=== PATIENT | female | born 1960 | race Caucasian/White ===

== ENCOUNTER 2017-07-03 11:37 | Emergency (ER) | payer OTHER ==
[2017-07-03] MEDS ORDERED: Acetaminophen TAB* 325 MG PO ONE (13:05)
[2017-07-03 13:38] LABS: ABS Basophils 0 10^3/ul (0-0.2); ABS Eosinophils 0.1 10^3/ul (0-0.6); ABS Lymphocytes 1.8 10^3/ul (1.0-4.8); ABS Monocytes 0.4 10^3/ul (0-0.8); ABS Neutrophils 1.3 10^3/ul (1.5-7.7); ABS Nucleated RBC 0 10^3/ul; Eosinophil % 3.8 % (0-6); Hematocrit 38 % (35-47); Lymphocyte % 48.6 % (25-47); Mean Corpuscular HGB Conc 34 g/dl (31-36); Mean Corpuscular Hemoglobin 34 pg (27-31); Mean Corpuscular Volume 99 fL (80-97); Mean Platelet Volume 6.3 um3 (7.4-10.4); Nucleated Red Blood Cells % 0.1; Platelet Count 188 10^3/ul (150-450); Red Blood Count 3.86 10^6/ul (4.0-5.4); Red Cell Distribution Width 13 % (10.5-15); White Blood Count 3.8 10^3/ul (3.5-10.8)
[2017-07-03 13:57] LABS: EGFR Non-African American 86.2 (>60)
[2017-07-03 15:13] VITALS: BP 112/74
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
== END 2017-07-03 15:11 | disposition left against medical advice (07) ==
LOC: ED 11:37
DX: R55 Syncope and collapse (principal); G44.209 Tension-type headache, unspecified, not intractable; R41.3 Other amnesia; R26.81 Unsteadiness on feet; R11.0 Nausea
CPT/HCPCS: 36415; 80053; 84484; 85025; 93005; 99283; A9270-GY

== ENCOUNTER 2018-04-26 12:13 | Emergency (ER) | payer OTHER ==
[2018-04-26 12:29] VITALS: BP 158/84
--- NOTE | 2018-04-26 12:44 | UC ---
Dental HPI - HPI Summary HPI Summary: 57-year-old woman comes in with a chief complaint of left facial swelling. She had dental work done on the left upper molar 2 days ago by her dentist. She is on amoxicillin. Been taking ibuprofen 800 mg by mouth 3 times a day which does help with the pain. No fevers or chills feels well otherwise. Is concerned because her cheek has swollen more over the last 2 days. She [id number] over dentist but he is unavailable today but does have a follow-up with her dentist scheduled for April 30, 2018. No difficulty with swallowing. - History of Current Complaint Chief Complaint: UCDentalProblem Stated Complaint: swelling Time Seen by Provider: 04/26/18 12:33 Pain Intensity: 5 - Allergies/Home Medications Allergies/Adverse Reactions: Allergies Allergy/AdvReac Type Severity Reaction Status Date / Time No Known Allergies Allergy Verified 04/26/18 12:29 Home Medications: Home Medications Amoxicillin PO (*) [Amoxicillin 500 MG CAP*] 500 mg PO TID 04/26/18 [History Confirmed 04/26/18] Ibuprofen TAB* [Motrin TAB* 800 MG] 800 mg PO Q8HR PRN 04/26/18 [History Confirmed 04/26/18] PMH/Surg Hx/FS Hx/Imm Hx Previously Healthy: Yes Psychological History: Anxiety - Surgical History Surgical History: Yes Surgery Procedure, Year, and Place: partial mast - Family History Known Family History: Positive: Non-Contributory - Social History Alcohol Use: None Alcohol Amount: unk Substance Use Type: None Substance Use Comment - Amount & Last Used: unk Smoking Status (MU): Unknown if Ever Smoked Review of Systems All Other Systems Reviewed And Are Negative: Yes Constitutional: Positive: Negative Skin: Positive: Negative Eyes: Positive: Negative ENT: Positive: Other - SEE HPI Respiratory: Positive: Negative Cardiovascular: Positive: Negative Gastrointestinal: Positive: Negative Motor: Positive: Negative Neurovascular: Positive: Negative Musculoskeletal: Positive: Negative Neurological: Positive: Negative Psychological: Positive: Anxious Is Patient Immunocompromised?: No Physical Exam Triage Information Reviewed: Yes Appearance: Well-Appearing, No Pain Distress, Well-Nourished Vital Signs: Initial Vital Signs Temp 98.6 F 04/26/18 12:26 Pulse 73 04/26/18 12:26 Resp 17 04/26/18 12:26 BP 158/84 04/26/18 12:26 Pulse Ox 100 04/26/18 12:26 Vital Signs Reviewed: Yes Eye Exam: Normal Eyes: Positive: Conjunctiva Clear ENT: Negative: Pharyngeal erythema, Nasal drainage Dental: Positive: Other: - LEFT CHEEK SWELLING. OROPHARYNX OPEN Neck exam: Normal Neck: Positive: Supple Respiratory: Positive: No respiratory distress Musculoskeletal Exam: Normal Musculoskeletal: Positive: Strength Intact, ROM Intact Neurological Exam: Normal Neurological: Positive: Alert, Muscle Tone Normal Psychological Exam: Normal Psychological: Positive: Age Appropriate Behavior Skin Exam: Normal Dental Complaint Course/Dx - Course Course Of Treatment: Patient is concerned about the swelling is potentially do to infection. She is on amoxicillin 500 mg by mouth 3 times a day. She feels well otherwise. The plan is to add clindamycin 300 mg by mouth 4 times a day and she will be following up with her dentist as scheduled on April 30, 2018. Reevaluation sooner if worse. - Differential Dx/Diagnosis Provider Diagnosis: Tooth ache, Left facial swelling Discharge - Sign-Out/Discharge Documenting (check all that apply): Patient Departure All imaging exams completed and their final reports reviewed: No Studies - Discharge Plan Condition: Stable Disposition: HOME Prescriptions: Clindamycin Cap(NF) [Clindamycin Cap 300 mg Cap(NF)] 300 mg PO Q6H #40 cap Ibuprofen TAB* [Motrin TAB* 800 MG] 800 mg PO TID PRN #15 tab MDD 3 PRN Reason: Pain Patient Education Materials: Toothache (ED) Referrals: Tunde Freire MD [Primary Care Provider] - Additional Instructions: FOLLOW UP WITH YOUR DENTIST. GET RECHECKED FOR ANY WORSENING OF YOUR CONDITION OR QUESTIONS OR CONCERNS. - Billing Disposition and Condition Condition: STABLE Disposition: Home
== END 2018-04-26 12:43 | disposition home or self-care (01) ==
LOC: UCEAST 12:13
DX: K08.89 Other specified disorders of teeth and supporting structures (principal); R22.0 Localized swelling, mass and lump, head
CPT/HCPCS: 99212; G0463

== ENCOUNTER 2018-05-04 13:04 | Emergency (ER) | payer OTHER ==
[2018-05-04 14:01] VITALS: BP 135/91
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
== END 2018-05-04 15:24 | disposition home or self-care (01) ==
LOC: UCEAST 13:04
DX: T18.9XXA Foreign body of alimentary tract, part unspecified, initial encounter (principal); X58.XXXA Exposure to other specified factors, initial encounter; Y92.531 Health care provider office as the place of occurrence of the external cause; Z96.643 Presence of artificial hip joint, bilateral
CPT/HCPCS: 74018; 99211; G0463

== ENCOUNTER 2018-06-25 09:32 | Emergency (ER) | payer OTHER ==
--- NOTE | 2018-06-25 10:03 | ED ---
Influenza-Like Illness - HPI Summary HPI Summary: This pt is a 57 y/o female presenting to [facility] c/o cough, sore throat, and fever. Pt reports pt saw her PCP 3 days ago for tooth "issues" and he heard wheezes. She notes her symptoms were worse yesterday and today woke up with chills and a fever maximum temperature of 103F. Pt describes a productive cough with sputum and also a sore throat. She took 800 mg Ibuprofen at 0900 today. Pt has had a dental abscess since February 2018. She notes she got root canal but never got a crown placed. - History of Current Complaint Chief Complaint: EDFluSymptoms Time Seen by Provider: 06/25/18 09:39 Hx Obtained From: Patient Onset/Duration: Gradual Onset, Lasting Days, Still Present Severity: Moderate Associated Signs & Symptoms: Fever, Cough, Sore Throat - Allergy/Home Medications Allergies/Adverse Reactions: Allergies Allergy/AdvReac Type Severity Reaction Status Date / Time No Known Allergies Allergy Verified 06/25/18 09:57 Home Medications: Home Medications Magnesium Oxide [Magnesium] 500 mg PO BEDTIME 06/25/18 [History Confirmed ] PMH/Surg Hx/FS Hx/Imm Hx Sensory History: Denies: Hx Legally Blind Opthamlomology History: Denies: Hx Legally Blind - Cancer History Cancer Type, Location and Year: triple negative breast CA. MDS Hx Chemotherapy: No Hx Radiation Therapy: Yes - Surgical History Surgery Procedure, Year, and Place: partial mast bilat hip replacement 2009, rotator cuff right 2013 Infectious Disease History: No Infectious Disease History: Denies: Traveled Outside the [place] in Last 30 Days - Family History Known Family History: Positive: Cardiac Disease - father, Diabetes - mother Family History: Mother with breast CA. - Social History Alcohol Use: Occasionally Alcohol Amount: unk Substance Use Type: Reports: None Substance Use Comment - Amount & Last Used: unk Smoking Status (MU): Never Smoked Tobacco Review of Systems Positive: Fever, Chills Positive: Sore Throat Respiratory: Other - POS: wheezing Positive: Cough All Other Systems Reviewed And Are Negative: Yes Physical Exam Vital Signs On Initial Exam: Initial Vitals Temp Pulse Resp BP Pulse Ox 102.2 F 101 20 110/83 97 06/25/18 09:36 06/25/18 09:36 06/25/18 09:36 06/25/18 09:36 06/25/18 09:36 Diagnostics - Vital Signs Vital Signs Temp Pulse Resp BP Pulse Ox 06/25/18 09:36 102.2 F 101 20 110/83 97 - Laboratory Result Diagrams: 06/25/18 10:23 06/25/18 10:24 Lab Statement: Any lab studies that have been ordered have been reviewed, and results considered in the medical decision making process. - Radiology Chest XR Radiology Interpretation Completed By: Radiologist Summary of Radiographic Findings: IMPRESSION: No active cardiopulmonary disease. Dr. Brand has reviewed this report. - EKG 09:58 Cardiac Rate: NL - at 91 bpm EKG Rhythm: Sinus Rhythm EKG Comparison: No Significant Change - compared to prior 07/03/17. Summary of EKG Findings: No ST elevation. Re-Evaluation - Re-Evaluation First Eval Re-Evaluation Time: 11:25 Comment: I reviewed the lab and CXR results with the pt. She will be discharged home with follow up from PCP. Flu Symptom Course/Dx - Course Assessment/Plan: This patient is a 57-year-old female who presents to the emergency department with a chief complaint of coughing, fevers, runny nose, sore throat. Blood work without any significant abnormality except for glucose of 135 and CRP of 20. Influenza A and B is negative, rapid strep is negative. Chest x-ray impression: No active or acute pulmonary disease. In the ED course the patient has remained stable. She has no other complaints. I believe that the patient has an upper respiratory tract infection which is likely viral. Therefore, I would not give the patient antibiotics and she needs to follow with her primary care physician. If she develops any fever or chills she will take ibuprofen and Tylenol. I discussed all the findings and test results with the patient. Patient was instructed to return to the emergency room immediately if any of the symptoms return or worsens. Plan of care was discussed with the patient and understands and agrees. All questions were answered at patient satisfaction. There were no further complaints or concerns. Lung exam before discharge: CTA B/L. Good air exchange. No wheezing or crackles heard. CVS: S1 and S2 present. No murmurs appreciated. Patient is alert and oriented x 3. Patient is hemodynamically stable. Patient will be discharged home with follow up from her PCP in the next 2-3 days. - Diagnoses Differential Diagnosis/HQI/PQRI: Positive: Bronchitis, Influenza, Pneumonia, Upper Respiratory Infection Provider Diagnoses: URI (upper respiratory infection) Discharge - Sign-Out/Discharge Documenting (check all that apply): Patient Departure - Discharge home Patient Received Moderate/Deep Sedation with Procedure: No - Discharge Plan Condition: Stable Disposition: HOME Patient Education Materials: Upper Respiratory Infection (ED) Referrals: Tunde Freire MD [Primary Care Provider] - Additional Instructions: FOLLOW UP WITH YOUR PRIMARY CARE PROVIDER IN 2-3 DAYS. RETURN TO THE ED FOR ANY NEW OR WORSENING SYMPTOMS. - Billing Disposition and Condition Condition: STABLE Disposition: Home - Attestation Statements Document Initiated by Aurelioibangelic: Yes Documenting Scribe: Lily Sanchez Provider For Whom Abbe is Documenting (Include Credential): Monroe Brand MD Scribe Attestation: Lily Awad scribed for Monroe Brand MD on 06/25/18 at 1843. Scribe Documentation Reviewed: Yes Provider Attestation: The documentation as recorded by the Lily kimball accurately reflects the service I personally performed and the decisions made by , Monroe Brand MD Status of Scribe Document: Viewed
--- OUTSIDE RECORDS SUMMARY | 2018-06-25 10:10 | XMS REPORT | Continuity of Care Document ---
:1960 External Reference #:[id number] Author Name Vandana Eloise Care Team Providers Name Role Phone Tunde Freire MD Care Team Information Egg Separator Unavailable Tunde Freire MD Primary Care Physician Unavailable Payers Date Identification Numbers Payment Provider Subscriber Policy Number: [id number] Sung Bolaños PayID: [id number] [address] [place] [phone] Advance Directives Description No Information Available Problems Date Description Provider Status Onset: 04/16/2015 Disturbance in sleep behavior Katharina Acevedo MD Active Note: since of her daughter Onset: 04/16/2015 Obesity Katharina Acevedo MD Active Onset: 05/29/2015 Obstructive sleep apnea Hiral Zendejas DNP, RN, Active syndrome INTERVENTIONAL TECHNOLOGIST-BC Note: has CPAP Onset: 05/04/2010 Neoplasm of breast Aniket Estrella MD Active Note: triple negative - followed by Dr Cuevas Family History Date Family Member(s) Observation Comments Father , diagnosed w/heart disease Mother Breast cancer; DM, from food poisoning Siblings 2 Sister, obese ; brother, healthy Social History Type Date Description Comments Sex Unknown Marital Status 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 Tobacco Use Start: Unknown Quit at age 18 ETOH Use Occasionally consumes alcohol Tobacco Use Start: Unknown End: Patient is a former Smoked from age Unknown smoker 14-19 years old Recreational Drug Use Denies Drug Use Smoking Status Reviewed: 06/04/18 Patient is a former Smoked from age smoker 14-19 years old Exercise Type/Frequency Exercises sporadically Allergies, Adverse Reactions, Alerts Date Description Reaction Status Severity Comments 04/16/2015 NKDA Active 04/16/2015 Seasonal Allergies Active Medications Medication Date Status Form Strength Qnty SIG Indications Ordering Provider Suprep Bowel 05/07/ Active Solution 17.5-3.13 354un as directed Aniket Milton Prep Kit 2018 -1.6GM/ its Sameer, 7ML Phentermine HCL 06/16/ Active Capsules 15mg as directed- Unknown 2016 seasonally, winter/ fall Meloxicam 06/16/ Active Tablets 15mg 1 by mouth Unknown 2016 every day as needed Claritin-D 12 06/16/ Active Tablets 5-120mg as directed Unknown Hour 2016 ER 12HR Ventolin HFA 06/16/ Active Aerosol 108(90Bas 2 puffs by Unknown 2016 e) mouth four mcg/Act times a day as needed Xanax 04/15/ Active Tablets 0.5mg by mouth Unknown 2015 three times a day as needed Ambien 04/15/ Active Tablets 10mg 1 by mouth Unknown 2015 every night at bedtime Vitamin D 04/15/ Active Capsules 2000Unit 1 by mouth Unknown 2015 every day Multivitamins 04/15/ Active Capsules 1 by mouth Unknown 2015 every day Vitamin B12 04/15/ Active Tablets 100mcg 1 by mouth Unknown 2015 every day Vitamin C 04/15/ Active Capsules 500mg 1 by mouth Unknown 2015 every day Fish Oil 04/15/ Active Capsules 1000mg 1 by mouth Unknown 2015 DR every day Clindamycin HCL / Active Capsules 300mg 1 by mouth Unknown 0000 three times a day Miralax / Active Packet 3350NF take 1 packet Unknown 0000 daily as needed for constipation Iron 04/15/ Hx Tablets 325(65Fe) 1 by mouth Unknown 2016 - mg every day 2017 Immunizations Description No Information Available Vital Signs Date Vital Result Comment 06/04/2018 2:11pm Height 65 inches 5'5" Weight 205.12 lb Heart Rate 68 /min BP Systolic Sitting 128 mmHg large adult cuff left arm BP Diastolic Sitting 73 mmHg large adult cuff left arm O2 % BldC Oximetry 98 % at rest on room air BMI (Body Mass Index) 34.1 kg/m2 05/07/2018 1:47pm Height 65 inches 5'5" Weight 200.00 lb Heart Rate 81 /min BP Systolic 143 mmHg BP Diastolic 87 mmHg Respiratory Rate 20 /min Body Temperature 96.0 F O2 % BldC Oximetry 100 % BMI (Body Mass Index) 33.3 kg/m2 05/04/2018 4:19pm Height 65 inches 5'5" Weight 200.50 lb Heart Rate 86 /min BP Systolic 158 mmHg BP Diastolic 90 mmHg Respiratory Rate 18 /min Body Temperature 97.8 F O2 % BldC Oximetry 97 % BMI (Body Mass Index) 33.4 kg/m2 09/22/2017 11:00am Height 65 inches 5'5" Weight 214.50 lb Heart Rate 72 /min BP Systolic Sitting 132 mmHg Rue large cuff BP Diastolic Sitting 88 mmHg Rue large cuff Respiratory Rate 16 /min O2 % BldC Oximetry 97 % On Ra BMI (Body Mass Index) 35.7 kg/m2 06/17/2016 10:25am Height 65 inches 5'5" Weight 210.00 lb Heart Rate 74 /min BP Systolic 132 mmHg BP Diastolic 70 mmHg Respiratory Rate 14 /min O2 % BldC Oximetry 98 % BMI (Body Mass Index) 34.9 kg/m2 12/16/2015 10:37am Height 65 inches 5'5" Weight 210.00 lb Heart Rate 65 /min BP Systolic Sitting 140 mmHg BP Diastolic Sitting 78 mmHg Respiratory Rate 16 /min O2 % BldC Oximetry 97 % BMI (Body Mass Index) 34.9 kg/m2 09/15/2015 10:34am Height 65 inches 5'5" Heart Rate 97 /min BP Systolic 142 mmHg BP Diastolic 80 mmHg Respiratory Rate 14 /min O2 % BldC Oximetry 98 % 07/10/2015 10:29am Height 65 inches 5'5" Weight 211.25 lb Heart Rate 82 /min BP Systolic 122 mmHg BP Diastolic 80 mmHg Respiratory Rate 14 /min BMI (Body Mass Index) 35.1 kg/m2 05/29/2015 10:44am Height 65 inches 5'5" Weight 204.25 lb Heart Rate 81 /min BP Systolic Sitting 134 mmHg BP Diastolic Sitting 74 mmHg Respiratory Rate 16 /min O2 % BldC Oximetry 98 % BMI (Body Mass Index) 34.0 kg/m2 04/16/2015 10:23am Height 65 inches 5'5" Weight 207.38 lb Heart Rate 80 /min BP Systolic Sitting 132 mmHg BP Diastolic Sitting 76 mmHg Respiratory Rate 16 /min O2 % BldC Oximetry 97 % BMI (Body Mass Index) 34.5 kg/m2 Neck Circumference in inches 14.5 Results Description No Information Available Procedures Date Code Description Status 05/08/2018 66503 Colonoscopy Flexible Remove Foreign Body Completed 05/08/2018 40714127 Colonoscopy Completed 05/04/2015 23895 Polysomnography Sleep Staging 4+ Parameters W/Cpap Completed Encounters Type Date Location Provider Dx Diagnosis Office Visit 05/07/2018 [facility] Aniket Milton T18.4xxD Foreign body in 1:45p MD Sameer colon, subsequent encounter E66.09 Other obesity due to excess calories Office Visit 05/04/2018 [facility] Aniket Milton T18.8xxA Foreign body in 4:00p MD Sameer other parts of alimentary tract, init encntr F41.1 Generalized anxiety disorder Office Visit 09/22/2017 [facility] G47.33 Obstructive sleep 10:45a [facility] Z[facility] RN, apnea (adult) [facility] INTERVENTIONAL TECHNOLOGIST-BC (pediatric) Z68.35 Body mass index (BMI) 35.0-35.9, adult Office Visit 06/17/2016 [facility] G47.33 Obstructive sleep 10:15a [facility] Z[facility] RN, apnea (adult) [facility] INTERVENTIONAL TECHNOLOGIST-BC (pediatric) Office Visit 12/16/2015 [facility] G47.33 Obstructive sleep 10:30a [facility] Z[facility] RN, apnea (adult) [facility] INTERVENTIONAL TECHNOLOGIST-BC (pediatric) E66.09 Other obesity due to excess calories Office Visit 09/15/2015 [facility] G47.33 Obstructive sleep 10:15a [facility] Z[facility] RN, apnea (adult) [facility] INTERVENTIONAL TECHNOLOGIST-BC (pediatric) E66.09 Other obesity due to excess calories Office Visit 07/10/2015 [facility] G47.33 Obstructive sleep 10:15a [facility] Z[facility] RN, apnea (adult) [facility] INTERVENTIONAL TECHNOLOGIST-BC (pediatric) Office Visit 05/29/2015 [facility] G47.33 Obstructive sleep 10:30a [facility] Z[facility] RN, apnea (adult) [facility] INTERVENTIONAL TECHNOLOGIST-BC (pediatric) Office Visit 04/16/2015 [facility] Katharina Acevedo G47.9 Sleep disorder, 10:15a [facility] E66.09 Other obesity due to excess calories Plan of Treatment Future Appointment(s):09/24/2018 10:30 am - Hiral Zendejas, GINGER, RN, INTERVENTIONAL TECHNOLOGIST-BC at [facility]06/04/2018 - Aniket Estrella, MDR10.84 Generalized abdominal painT18.4xxD Foreign body in colon, subsequent [id number] Other obesity due to excess calories
[2018-06-25 10:35] LABS: ABS Basophils 0 10^3/ul (0-0.2); ABS Eosinophils 0 10^3/ul (0-0.6); ABS Lymphocytes 0.4 10^3/ul (1.0-4.8); ABS Monocytes 0.4 10^3/ul (0-0.8); ABS Neutrophils 5.2 10^3/ul (1.5-7.7); ABS Nucleated RBC 0 10^3/ul; Eosinophil % 0.3 %; Hematocrit 38 % (33-41); Hemoglobin 13.2 g/dL (12.0-16.0); Lymphocyte % 6.6 %; Mean Corpuscular HGB Conc 35 g/dL (31-36); Mean Corpuscular Hemoglobin 33 pg (27-31); Mean Corpuscular Volume 97 fL (80-97); Mean Platelet Volume 6.4 fL (7.4-10.4); Nucleated Red Blood Cells % 0; Platelet Count 151 10^3/uL (150-450); Red Blood Count 3.93 10^6 /uL (3.70-4.87); Red Cell Distribution Width 13 % (10.5-15); White Blood Count 6.1 10^3/uL (3.5-10.8)
[2018-06-25 10:36] LABS: Influenza A Molecular NEGATIVE (Negative); Influenza B Molecular NEGATIVE (Negative)
[2018-06-25 10:55] LABS: Albumin/Globulin Ratio 1.4 (1-3); BUN/Creatinine Ratio 14.9 (8-20); C Reactive Protein 20.42 mg/L (<8.01); Calcium 8.8 mg/dL (8.6-10.3); EGFR African American 109.4 (>60); EGFR Non-African American 90.4 (>60); Globulin 2.9 g/dL (2-4); Potassium 3.6 mmol/L (3.5-5.0); Total Bilirubin 0.6 mg/dL (0.2-1.0); Total Protein 6.9 g/dL (6.4-8.9)
[2018-06-25 10:57] LABS: Troponin I 0.01 ng/mL (<0.04)
[2018-06-25 10:58] LABS: CKMB ng/mL 1.1 ng/mL (0.6-6.3)
[2018-06-25 11:49] VITALS: BP 116/65
== END 2018-06-25 11:48 | disposition home or self-care (01) ==
LOC: ED 09:32
DX: J06.9 Acute upper respiratory infection, unspecified (principal); Z96.643 Presence of artificial hip joint, bilateral
CPT/HCPCS: 36415; 71046; 80053; 82553; 83605; 83880; 84484; 85025; 86140; 87040; 87651; 93005; 99283

== ENCOUNTER 2018-12-02 12:25 | Emergency (ER) | payer OTHER ==
[2018-12-02 12:38] VITALS: BP 125/77
--- NOTE | 2018-12-02 12:40 | UC ---
Skin Complaint HPI - HPI Summary HPI Summary: 58 year old female with c/o skin redness, swelling. PMH- asthma - Was riding with friend through horses, stung by multiple yellow jackets. Noted today to have increased swelling, redness, getting "hard and shiny", itching, mild pain. was told by friend it may be cellulitis and to be seen. No fever, no decreased breathing, no lightheadedness, dizziness. No other symptoms. At home, using baking soda, ice, vinegar, benadryl (does not see any benefit with benadryl) and topical hydrocortisone cream. Feels symtpoms have gotten worse since urs - History of Current Complaint Time Seen by Provider: 12/02/18 12:34 Stated Complaint: SKIN COMPLAINT Hx Obtained From: Patient ?: No Onset/Duration: Sudden Onset, Lasting Days - since , Still Present, Worse Since - daily Skin Exposure Onset/Duration: Days Ago Onset Severity: Moderate Current Severity: Moderate Location: Discrete - right red forearm. Character: Swelling, Pruritus, Pain, Redness, Raised Aggravating Factor(s): Nothing Alleviating Factor(s): Nothing Associated Signs & Symptoms: Positive: Red Streaks Related History: Insect Bite/Sting - - Allergy/Home Medications Allergies/Adverse Reactions: Allergies Allergy/AdvReac Type Severity Reaction Status Date / Time No Known Allergies Allergy Verified 12/02/18 12:38 PMH/Surg Hx/FS Hx/Imm Hx Previously Healthy: Yes Respiratory History: Asthma - Surgical History Surgical History: Yes Surgery Procedure, Year, and Place: partial mast bilat hip replacement 2009, rotator cuff right 2013 - Family History Known Family History: Positive: Cardiac Disease - father, Diabetes - mother, Non -Contributory Family History: Mother with breast CA. - Social History Alcohol Use: Occasionally Alcohol Amount: unk Substance Use Type: None Substance Use Comment - Amount & Last Used: unk Smoking Status (MU): Never Smoked Tobacco Review of Systems All Other Systems Reviewed And Are Negative: Yes Constitutional: Positive: Negative Skin: Positive: Rash Psychological: Positive: Negative Is Patient Immunocompromised?: No Physical Exam Triage Information Reviewed: Yes Appearance: Well-Appearing, No Pain Distress, Well-Nourished Vital Signs Reviewed: Yes Eyes: Positive: Conjunctiva Clear ENT: Positive: Hearing grossly normal Musculoskeletal: Positive: Strength Intact, ROM Intact, Edema @ - right forearm - minimal swelling, two areas of erythema, inner moderate erythema, indurated, + blanching, measuring x 2cm x 4cm. Mild erythema outer ringe ~ 1cm extending from inner, blanching. non-tender. Neurological Exam: Normal Psychological Exam: Normal Skin: Positive: Other - right forearm- minimal swelling, two areas of erythema, inner moderate erythema, indurated, + blanching, measuring x 2cm x 4cm. Mild erythema outer ringe ~ 1cm extending from inner, blanching. non-tender.. Negative: Breakdown - no open wounds, sores, no drainage noted. no blistering Course/Dx - Course Course Of Treatment: Allergic reaction with potentially secondary cellulitis. Topical steroid, antibiotics. FOllow up with primary physician - Differential Diagnoses - Skin Complaint Differential Diagnoses: Cellulitis, Contact Dermatitis, Poison Nicole, Poison Levant, Scabies, Urticaria - Diagnoses Provider Diagnosis: Allergic reaction to bee sting, Cellulitis of arm, right Discharge ED - Sign-Out/Discharge Documenting (check all that apply): Patient Departure All imaging exams completed and their final reports reviewed: No Studies - Discharge Plan Condition: Good Disposition: HOME Prescriptions: Cephalexin CAP* [Keflex CAP*] 500 mg PO QID #28 cap Triamcinolone 0.025% CM(NF) [Kenalog Cream 0.025%*] 1 gm TOPICAL BID PRN #1 tube PRN Reason: Itching Patient Education Materials: Cephalexin (By mouth), Triamcinolone (On the skin) , Cellulitis (ED) Referrals: Tunde Freire MD [Primary Care Provider] - (follow up for re-evaluation within 3-4 days ) Additional Instructions: - Go to ER with worsening symptoms such as increased redness, pain, increased swelling, fever, chills, joint pains, shortness of breath - Topical steroid 2-3 times a day to arm as needed for itching - Antibiotics as directed - Continue bendaryl for symptoms. - López area or take photographs to monitor progression, improvement. - Tylenol/ motrin as needed for pain - Billing Disposition and Condition Condition: GOOD Disposition: Home - Attestation Statements Provider Attestation: I was available for consult. This patient was seen by the YANI. The patient was not presented to, seen by, or examined by me. -Salvador
== END 2018-12-02 13:18 | disposition home or self-care (01) ==
LOC: UCEAST 12:25
DX: T63.441A Toxic effect of venom of bees, accidental (unintentional), initial encounter (principal); Y92.9 Unspecified place or not applicable; J45.909 Unspecified asthma, uncomplicated
CPT/HCPCS: 99212; G0463